=== PATIENT | male | born 1980 | race Caucasian/White ===

== ENCOUNTER 2017-01-24 09:36 | Emergency (ER) | payer OTHER ==
[2017-01-24] MEDS ORDERED: Aspirin Low Dose CHEW TAB* 81 MG PO ONE (12:39)
--- NOTE | 2017-01-24 12:46 | UC ---
ramiro Vergara Timothy, scribed for Kristin Hernandez DO on 01/24/17 at 1210 . FLU HPI - HPI Summary HPI Summary: Trell Steinberg Jr. is a 36 yo male presenting to [facility] with a cold since 01/20/17, with 5/10 ORANTES, sinus pressure, sore throat, productive cough, eye burning, and dizziness since this morning. He states he was unsteady, but did not lose consciousness or fall over. He denies any vomiting, but experienced some LUQ abd pain. His cough is occasionally productive, but does not keep him up at night. He has some right sided neck pain attributed to sleeping wrong, which has resolved. he believes he experienced a subjective fever over the past few days. He denies any other Sx. Pt pmh positive for htn, dm2(insulin dependant, very noncompliant), dislipidemia,asthma, jeremy, depression. - History of Current Complaint Chief Complaint: UCRespiratory Stated Complaint: LIGHTHEADNESS,SORE THROAT,RUNNY NOSE Time Seen by Provider: 01/24/17 12:17 Hx Obtained From: Patient Onset/Duration: Gradual Onset, Lasting Days, Still Present Severity Currently: Moderate Severity Initially: Moderate Pain Intensity: 5 Pain Scale Used: 0-10 Numeric Associated Signs & Symptoms: Positive: Fever - subjective, Cough, Sore Throat, Nasal Congestion, Headache - Allergy/Home Medications Allergies/Adverse Reactions: Allergies Allergy/AdvReac Type Severity Reaction Status Date / Time No Known Allergies Allergy Verified 05/31/16 16:00 PMH/Surg Hx/FS Hx/Imm Hx - Additional Past Medical History Additional PMH: HLD Endocrine History Of: Reports: Diabetes - oral meds Denies: Thyroid Disease Cardiovascular History Of: Reports: Hypertension Denies: Cardiac Disorders, Pacemaker/ICD Respiratory History Of: Reports: Asthma - exercise induced as a child Denies: COPD GI/ History Of: Denies: Ulcer Psychological History Of: Reports: Depression - Surgical History Surgical History: None - Family History Known Family History: Positive: Cardiac Disease, Hypertension, Diabetes, Other - HLD - Social History Lives: With Family Alcohol Use: Rare Substance Use Type: None Smoking Status (MU): Never Smoked Tobacco Have You Smoked in the Last Year: No Review of Systems Constitutional: Fever - subjective Skin: Negative Eyes: Other - eye pain ENT: Sore Throat, Nasal Discharge, Other - sinus pressure Respiratory: Cough Cardiovascular: Negative Gastrointestinal: Abdominal Pain - LUQ Genitourinary: Negative Motor: Negative Neurovascular: Negative Musculoskeletal: Other: - neck pain, resolved Neurological: Headache, Other - dizziness Psychological: Negative All Other Systems Reviewed And Are Negative: Yes Physical Exam Triage Information Reviewed: Yes Appearance: Well-Appearing, No Pain Distress, Obese Vital Signs: Initial Vital Signs Temp 97.1 F 01/24/17 09:42 Pulse 119 01/24/17 09:42 Resp 20 01/24/17 09:42 BP 144/95 01/24/17 09:42 Pulse Ox 100 01/24/17 09:42 Vital Signs Reviewed: Yes Eyes: Positive: Conjunctiva Clear. Negative: Discharge ENT: Positive: Hearing grossly normal, TMs normal. Negative: Muffled/hoarse voice Neck: Positive: Supple, Nontender Respiratory: Positive: Lungs clear, Normal breath sounds, No respiratory distress, No accessory muscle use Cardiovascular: Positive: No Murmur, Tachycardia. Negative: RRR Abdomen Description: Positive: Nontender, Soft. Negative: Distended, Guarding Bowel Sounds: Positive: Present Musculoskeletal Exam: Normal Neurological: Positive: Alert, Muscle Tone Normal, Other: - aox4, strength, sensation and reflexes intact bl, cn 2-12 intact, no cerebellar signs Psychological Exam: Normal Psychological: Positive: Age Appropriate Behavior Skin Exam: Normal Diagnostics - EKG Cardiac Rate: NL - Impression: 1218 NSR @ 97 BPM. Normal EKG. Flu Course/Dx - Course Course Of Treatment: Trell Steinberg Jr. is a 36 yo male presenting to [facility] with a cold since 01/20/17 including ORANTES, sinus pressure, and dizziness. Pt was tachycardic upon arrival. After clinical examination and review of his EKG, and discussion with Dr. Gooden, he will be transferred to [facility] for further evaluation and care. - Differential Dx/Diagnosis Differential Diagnosis/HQI/PQRI: Bronchitis, Upper Respiratory Infection, Other - sinusitis, hyperglucemia, mi Provider Diagnoses: dizziness, atypical cp r/o mi, sinusitis, hyerglycemia - Physician Notifications Discussed Patient Care With: 1236 - Dr. Gooden ([facility] physician) - Discussed Pt condition, agrees to see Pt in ED. Instructed by Provider To: MD Will See In ED Discharge - Discharge Plan Condition: Stable Disposition: TRANS HIGHER LVL OF CARE FAC Discharge Disposition Comment: Transferrred to [facility] for further evaluation and care Patient Education Materials: Diabetes Mellitus Type 2 in Adults (ED) Referrals: Sophy Cortes MD [Primary Care Provider] - The documentation as recorded by the ramiro suarez Timothy accurately reflects the service I personally performed and the decisions made by me, Kristin Hernandez DO.
[2017-01-24 12:55] VITALS: BP 143/108
== END 2017-01-24 13:08 | disposition short-term general hospital (02) ==
LOC: UCEAST 09:36
DX: R42 Dizziness and giddiness (principal); R07.89 Other chest pain; J32.9 Chronic sinusitis, unspecified; E11.65 Type 2 diabetes mellitus with hyperglycemia; Z79.84 Long term (current) use of oral hypoglycemic drugs
CPT/HCPCS: 93005; 99213; A9270-GY; G0463

== ENCOUNTER 2017-01-24 13:24 | Emergency (ER) | payer OTHER ==
[2017-01-24 13:39] VITALS: BP 144/106
[2017-01-24] MEDS ORDERED: NS 0.9% 1000 ML* 2,000 ML IV ONE (13:43)
[2017-01-24 14:03] LABS: Hematocrit 46 % (42-52); Hemoglobin 15.6 g/dl (14.0-18.0); Mean Corpuscular HGB Conc 34 g/dl (31-36); Mean Corpuscular Hemoglobin 29 pg (27-31); Mean Corpuscular Volume 86 fL (80-94); Mean Platelet Volume 10 um3 (7.4-10.4); Red Blood Count 5.37 10^6/ul (4.0-5.4); Red Cell Distribution Width 13 % (10.5-15); White Blood Count 5.6 10^3/ul (3.5-10.8)
[2017-01-24 14:28] LABS: Albumin 4.1 g/dL (3.2-5.2); BUN/Creatinine Ratio 17.3 (8-20); C Reactive Protein 35.97 mg/L (< 5.00); Calcium 9.7 mg/dL (8.6-10.3); EGFR African American 110.7 (>60); EGFR Non-African American 86.1 (>60); Globulin 3.5 g/dL (2-4); Potassium 4.2 mmol/L (3.5-5.0); Total Bilirubin 0.8 mg/dL (0.2-1.0); Total Protein 7.6 g/dL (6.4-8.9)
[2017-01-24] MEDS ORDERED: Insulin REGULAR(*) 1 UNITS UNIT IV PUSH ONE ×2 (14:29→15:57)
--- NOTE | 2017-01-24 14:29 | RAD ---
HISTORY: Headache, dizziness, cough COMPARISONS: None VIEWS: 2: Frontal dual-energy and lateral views of the chest. FINDINGS: CARDIOMEDIASTINAL SILHOUETTE: The cardiomediastinal silhouette is normal. NADEEM: The nadeem are normal. PLEURA: The costophrenic angles are sharp. No pleural abnormalities are noted. LUNG PARENCHYMA: The lungs are clear. ABDOMEN: The upper abdomen is clear. There is no subphrenic gas. BONES AND SOFT TISSUES: No bone or soft tissue abnormalities are noted. OTHER: None. IMPRESSION: NO ACTIVE CARDIOPULMONARY DISEASE.
[2017-01-24 15:33] LABS: Urine Bilirubin Negative (Negative); Urine Glucose 3+(>=500 mg/dL) (Negative); Urine Nitrite Negative (Negative)
--- NOTE | 2017-01-24 18:55 | ED ---
Brayan Vergara Erika, scribed for Evaristo Long MD on 01/24/17 at 1343 . HPI Diabetic - HPI Summary HPI Summary: Patient is a 36-year-old male presenting to the ED with a CC of hyperglycemia. Patient reports that on 01/19/2017, patient gradually developed symptoms of headache, dizziness, sore throat, and nasal discharge. Pt denies cough, constipation, and diarrhea. Today, he was seen at [facility], where they were unable to get a reading on his blood sugar because it was too high. Patient has a Hx DM, and takes Lantis. He also has a Hx HTN, hyperlipidemia. FHx diabetes, HTN. Patient does not smoke or drink. - History Of Current Complaint Time Seen by Provider: 01/24/17 13:37 Hx Obtained From: Patient, Family/Supervisor Word Processing Onset/Duration: Gradual Onset, Lasting Days, Still Present Timing: Constant Severity Initially: Mild Severity Currently: Moderate Aggravating: Recent Illness Alleviating: Nothing - Allergies/Home Medications Allergies/Adverse Reactions: Allergies Allergy/AdvReac Type Severity Reaction Status Date / Time No Known Allergies Allergy Verified 05/31/16 16:00 PMH/Surg Hx/FS Hx/Imm Hx Endocrine/Hematology History: Reports: Hx Diabetes - oral meds Denies: Hx Thyroid Disease Cardiovascular History: Reports: Hx Hypercholesterolemia, Hx Hypertension Denies: Hx Pacemaker/ICD Respiratory History: Reports: Hx Asthma - exercise induced as a child, Hx Sleep Apnea - evaluation for 06/2014 Denies: Hx Chronic Obstructive Pulmonary Disease (COPD) GI History: Denies: Hx Ulcer Sensory History: Denies: Hx Hearing Aid Psychiatric History: Reports: Hx Depression Denies: Hx Panic Disorder - Immunization History Date of Tetanus Vaccine: unknown Infectious Disease History: Denies: Hx Clostridium Difficile, Hx Hepatitis, Hx Human Immunodeficiency Virus (HIV), Hx of Known/Suspected MRSA, Hx Shingles, Hx Tuberculosis, Hx Known/ Suspected VRE, Hx Known/Suspected VRSA, History Other Infectious Disease, Traveled Outside the [place] in Last 30 Days - Family History Known Family History: Positive: Cardiac Disease, Hypertension, Diabetes, Other - HLD - Social History Alcohol Use: None Hx Substance Use: No Substance Use Type: Reports: None Hx Tobacco Use: No Smoking Status (MU): Never Smoked Tobacco Have You Smoked in the Last Year: No Review of Systems Positive: Sore Throat, Nasal Discharge Negative: Cough Negative: Diarrhea Neurological: Other - dizziness Positive: Headache All Other Systems Reviewed And Are Negative: Yes Physical Exam - Summary Physical Exam Summary: VITAL SIGNS: Reviewed. GENERAL: Patient is a well developed and nourished male who is lying comfortable in the stretcher. Patient is not in any acute respiratory distress. HEAD AND FACE: No signs of trauma. No ecchymosis, hematomas or skull depressions. No sinus tenderness. EYES: PERRLA, EOMI x 2, No injected conjunctiva, no nystagmus. EARS: Hearing grossly intact. Ear canals and tympanic membranes are within normal limits. MOUTH: Oropharynx within normal limits. NECK: Supple, trachea is midline, no adenopathy, no JVD, no carotid bruit, no c- spine tenderness, neck with full ROM. CHEST: Symmetric, no tenderness at palpation LUNGS: Clear to auscultation bilaterally. No wheezing or crackles. CVS: Regular rate and rhythm, S1 and S2 present, no murmurs or gallops appreciated. ABDOMEN: Soft, non-tender. No signs of distention. No rebound no guarding, and no masses palpated. Bowel sounds are normal. EXTREMITIES: FROM in all major joints, no edema, no cyanosis or clubbing. NEURO: Alert and oriented x 3. No acute neurological deficits. Speech is normal and follows commands. SKIN: Dry and warm Triage Information Reviewed: Yes Vital Signs On Initial Exam: Initial Vital Signs Temp 98.6 F 01/24/17 13:36 Pulse 100 01/24/17 13:36 Resp 16 01/24/17 13:36 BP 144/106 01/24/17 13:36 Pulse Ox 99 01/24/17 13:36 Vital Signs Reviewed: Yes Diagnostics - Vital Signs Vital Signs Temp Pulse Resp BP Pulse Ox 01/24/17 13:36 98.6 F 100 16 144/106 99 - Laboratory Lab Results: Lab Results 01/24/17 01/24/17 Range/Units 12:50 12:50 WBC 5.6 (3.5-10.8) 10^3/ul RBC 5.37 (4.0-5.4) 10^6/ul Hgb 15.6 (14.0-18.0) g/dl Hct 46 (42-52) % MCV 86 (80-94) fL MCH 29 (27-31) pg MCHC 34 (31-36) g/dl RDW 13 (10.5-15) % Plt Count 220 (150-450) 10^3/ul MPV 10 (7.4-10.4) um3 Neut % (Auto) 41.9 (38-83) % Lymph % (Auto) 47.8 H (25-47) % Sibley % (Auto) 9.1 H (1-9) % Eos % (Auto) 0.5 (0-6) % Baso % (Auto) 0.7 (0-2) % Absolute Neuts (auto) 2.4 (1.5-7.7) 10^3/ul Absolute Lymphs (auto) 2.7 (1.0-4.8) 10^3/ul Absolute Monos (auto) 0.5 (0-0.8) 10^3/ul Absolute Eos (auto) 0 (0-0.6) 10^3/ul Absolute Basos (auto) 0 (0-0.2) 10^3/ul Absolute Nucleated RBC 0.01 10^3/ul Nucleated RBC % 0.2 Sodium 126 L (133-145) mmol/L Potassium 4.2 (3.5-5.0) mmol/L Chloride 92 L (101-111) mmol/L Carbon Dioxide 27 (22-32) mmol/L Anion Gap 7 (2-11) mmol/L BUN 17 (6-24) mg/dL Creatinine 0.98 (0.67-1.17) mg/dL Est GFR ( Amer) 110.7 (>60) Est GFR (Non-Af Amer) 86.1 (>60) BUN/Creatinine Ratio 17.3 (8-20) Glucose 439 H (70-100) mg/dL Calcium 9.7 (8.6-10.3) mg/dL Total Bilirubin 0.80 (0.2-1.0) mg/dL AST 16 (13-39) U/L ALT 25 (7-52) U/L Alkaline Phosphatase 70 (34-104) U/L Total Creatine Kinase 142 (10-223) U/L C-Reactive Protein 35.97 H (< 5.00) mg/L Total Protein 7.6 (6.4-8.9) g/dL Albumin 4.1 (3.2-5.2) g/dL Globulin 3.5 (2-4) g/dL Albumin/Globulin Ratio 1.2 (1-3) Result Diagrams: 01/24/17 12:50 01/24/17 12:50 Lab Statement: Any lab studies that have been ordered have been reviewed, and results considered in the medical decision making process. - Radiology CXR Radiology Interpretation Completed By: Radiologist - IMPRESSION: NO ACTIVE CARDIOPULMONARY DISEASE. - EKG 13:55 Cardiac Rate: NL - at 89 bpm EKG Rhythm: Sinus Rhythm EKG Interpretation: No ST elevation Diabetic Course/Dx - Course Assessment/Plan: Patient is a 36-year-old male presenting to the ED with a CC of hyperglycemia. Patient reports that on 01/19/2017, patient gradually developed symptoms of headache, dizziness, sore throat, and nasal discharge. Pt denies cough, constipation, and diarrhea. Today, he was seen at [facility] , where they were unable to get a reading on his blood sugar because it was too high. Patient has a Hx DM, and takes Lantis. He also has a Hx HTN, hyperlipidemia. FHx diabetes, HTN. Patient does not smoke or drink. Bloodwork WNL except for sodium of 126, CRP of 35, glucose of 439. UA positive for 3+ glucose. Influenza B positive. The pt has been having the flu symptoms for more than 5 days therefore he would not benefit from treatment. CXR shows no active disease. In the ED course, the pt was hydrated with approx. 3 L fluids. He was given 18 units of insulin and his Sx have improved. At this point the pt reports he is feeling much improved and would like to be discharged. His finger stick right now is 185, Therefore, the patient will be discharged home with follow up from his PCP. The pt was instructed to hydrate well and he was advised to return for fever, chills, chest pain, SOB, or palpitations. The patient is hemodynamically stable and A&Ox3. I discussed all the findings and test results with the patient. Patient was instructed to return to the emergency room immediately if any of the symptoms return or worsens. Plan of care was discussed with the patient and understands and agrees. All questions were answered at patient satisfaction. There were no further complaints or concerns. Lung exam before discharge: CTA B/L. Good air exchange. No wheezing or crackles heard. CVS: S1 and S2 present. No murmurs appreciated. Patient is alert and oriented x 3. Patient is hemodynamically stable. 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
== END 2017-01-24 17:45 | disposition home or self-care (01) ==
LOC: ED 13:24
DX: E11.65 Type 2 diabetes mellitus with hyperglycemia (principal); J11.1 Influenza due to unidentified influenza virus with other respiratory manifestations; J02.9 Acute pharyngitis, unspecified; R51 Headache
CPT/HCPCS: 36415; 71020; 80053; 81003; 82550; 85025; 86140; 87502; 87651; 93005; 99284

== ENCOUNTER 2018-11-16 12:13 | Emergency (ER) | payer BC, OTHER ==
[2018-11-16] MEDS ORDERED: Lidocaine 1%* 5 ML VIAL INJ ONE (13:41)
[2018-11-16] MEDS ORDERED: cefTRIAXone VIAL(*) 1,000 MG VIAL IM ONE (13:41)
--- NOTE | 2018-11-16 14:43 | ED ---
Lower Extremity - HPI Summary HPI Summary: Patient is an otherwise healthy 37-year-old male presenting to the ED with left foot injury. He states on morning he stepped on either glass or particles of a dog bone. He does not believe there is a foreign body in the area. He states originally this pain was a 5/10, only with ambulation and better with rest, however over the past day has been worsening, specifically with ambulation. Pain is currently a 9/10, intermittent and throbbing. He comes to the ED today for concern over cellulitis as he noticed a red streak from the dorsum of the midfoot extending just above the ankle and worsening pain when ambulating. Patient is a diabetic and takes Lantus. He denies any other concerns on this date. - History of Current Complaint Chief Complaint: EDSoftTissueLowExtr Stated Complaint: LT FOOT PAIN Time Seen by Provider: 11/16/18 12:35 Hx Obtained From: Patient Mechanism Of Injury: Penetrating Trauma Onset of Pain: Minutes Onset/Duration: Minutes Severity Initially: Moderate Severity Currently: Moderate Pain Intensity: 7 Pain Scale Used: 0-10 Numeric Timing: Constant Location: Is Discrete @ - left plantar surface of the foot along the second digit Character Of Pain: Aching Associated Signs And Symptoms: Positive: Redness Aggravating Factor(s): Standing, Ambulation Alleviating Factor(s): Rest Able to Bear Weight: Yes - difficulty with bearing weight - Risk Factors Gout Risk Factors: Negative DVT Risk Factors: Negative Septic Arthritis Risk Factor: Negative - Allergies/Home Medications Allergies/Adverse Reactions: Allergies Allergy/AdvReac Type Severity Reaction Status Date / Time No Known Allergies Allergy Verified 11/16/18 12:19 Home Medications: Home Medications Atorvastatin* [Lipitor*] 10 mg PO 2100 11/16/18 [History Confirmed 11/16/18] Empaglifozin (NF) [Jardiance] 25 mg PO DAILY 11/16/18 [History Confirmed ] Lisinopril 10 mg PO DAILY 11/16/18 [History Confirmed 11/16/18] metFORMIN* [Glucophage 1000 MG TAB *] 1,000 mg PO DAILY 11/16/18 [History Confirmed 11/16/18] PMH/Surg Hx/FS Hx/Imm Hx Previously Healthy: Yes - diabetic Endocrine/Hematology History: Reports: Hx Diabetes - oral meds Denies: Hx Thyroid Disease Cardiovascular History: Reports: Hx Hypercholesterolemia, Hx Hypertension Denies: Hx Pacemaker/ICD Respiratory History: Reports: Hx Asthma - exercise induced as a child, Hx Sleep Apnea - evaluation for 06/2014 Denies: Hx Chronic Obstructive Pulmonary Disease (COPD) GI History: Denies: Hx Ulcer Sensory History: Denies: Hx Hearing Aid Psychiatric History: Reports: Hx Depression Denies: Hx Panic Disorder - Immunization History Date of Tetanus Vaccine: unknown Hx Pertussis Vaccination: No Immunizations Up to Date: Yes Infectious Disease History: No Infectious Disease History: Denies: Hx Clostridium Difficile, Hx Hepatitis, Hx Human Immunodeficiency Virus (HIV), Hx of Known/Suspected MRSA, Hx Shingles, Hx Tuberculosis, Hx Known/ Suspected VRE, Hx Known/Suspected VRSA, History Other Infectious Disease, Traveled Outside the [place] in Last 30 Days - Family History Known Family History: Positive: Cardiac Disease, Hypertension, Diabetes, Other - HLD - Social History Occupation: Employed Full-time Lives: With Family Alcohol Use: None Hx Substance Use: No Substance Use Type: Reports: None Hx Tobacco Use: No Smoking Status (MU): Never Smoked Tobacco Have You Smoked in the Last Year: No Review of Systems Constitutional: Negative Negative: Fever, Chills, Fatigue, Skin Diaphoresis Negative: Palpitations, Chest Pain Negative: Shortness Of Breath, Cough Genitourinary: Negative Positive: no symptoms reported, see HPI Negative: Arthralgia, Myalgia Positive: Other - erythematous streak from dorsum of the foot just proximal to the ankle measuring 13cm Negative: Headache, Weakness Psychological: Normal All Other Systems Reviewed And Are Negative: Yes Physical Exam Triage Information Reviewed: Yes Vital Signs On Initial Exam: Initial Vitals Temp Pulse Resp BP Pulse Ox 98.0 F 118 20 153/85 99 11/16/18 12:15 11/16/18 12:15 11/16/18 12:15 11/16/18 12:15 11/16/18 12:15 Vital Signs Reviewed: Yes Appearance: Positive: Well-Appearing, Well-Nourished Skin: Positive: Skin Color Reflects Adequate Perfusion Head/Face: Positive: Normal Head/Face Inspection Eyes: Positive: EOMI, SANDIP, Conjunctiva Clear Neck: Positive: Supple, No Lymphadenopathy Respiratory/Lung Sounds: Positive: Clear to Auscultation, Breath Sounds Present Cardiovascular: Positive: RRR, Pulses are Symmetrical in both Upper and Lower Extremities Musculoskeletal: Positive: Normal, Strength/ROM Intact Neurological: Positive: Speech Normal Psychiatric: Positive: Affect/Mood Appropriate AVPU Assessment: Alert Diagnostics - Vital Signs Vital Signs Temp Pulse Resp BP Pulse Ox 11/16/18 12:15 98.0 F 118 20 153/85 99 - Laboratory Lab Statement: Any lab studies that have been ordered have been reviewed, and results considered in the medical decision making process. - Radiology No standard instances Radiology Interpretation Completed By: ED Physician, Radiologist - Read by myself, Yvette Bennett PA-C and radiologist. IMPRESSION: LINEAR RADIOPAQUE FOREIGN BODY IN THE SOFT TISSUES ALONG THE PLANTAR ASPECT OF THE PROXIMAL PHALANX OF THE SECOND DIGIT. NO ACUTE OSSEOUS INJURY. IF SYMPTOMS PERSIST, RECOMMEND REPEAT IMAGING. Re-Evaluation - Re-Evaluation First Eval Change: Improved - Improved with lidocaine to the plantar surface of the foot Lower Extremity Course/Dx - Course Course Of Treatment: During the course of treatment, the patient's evaluated for left plantar foot injury which happened 3 days prior. He states the areas been getting worse with ambulation and a red streak began this morning to the dorsum of the foot extending just proximal to the ankle without extending cellulitis. X-ray obtained which shows a linear FB in the soft tissue along the plantar aspect of the proximal phalanx. Timeout obtained. Cleansed wound thoroughly using Betadine. Small 0.7 cm incision made over insertion of FB. Using ultrasound, incised to approximately 0.3 cm depth. Unable to retrieve FB and concern for further damage to surrounding structures. Advised to seek surgical consult. Patient requesting ortho, Dr. Longo. I have given him a referral for Dr. Longo for removal of FB. He is given Rocephin 1g IM in the ED and Keflex 500 QID x 7 days. He is given strict return precautions for worsening erythema, warmth or streaking to the leg, fevers, sweats, chills. He understands these return precautions and is okay for discharge at this time. - Diagnoses Differential Diagnosis/HQI/PQRI: Positive: Foreign Body, Infection, Other - lymphangitis Provider Diagnoses: Foreign body in foot Discharge - Sign-Out/Discharge Documenting (check all that apply): Patient Departure - Discharge Plan Condition: Stable Disposition: HOME Prescriptions: Cephalexin CAP* [Keflex CAP*] 500 mg PO QID #28 cap MDD 4 Patient Education Materials: Soft Tissue Foreign Body (ED) Forms: *Work Release Referrals: Sophy Cortes MD [Primary Care Provider] - Sergey Longo MD [Medical Doctor] - Additional Instructions: Please follow up with orthopedics or surgery for foreign body removal Keflex four times daily x 7 days - Billing Disposition and Condition Condition: STABLE Disposition: Home
[2018-11-16 17:50] VITALS: BP 144/100
== END 2018-11-16 17:53 | disposition home or self-care (01) ==
LOC: ED 12:13
DX: S90.852A Superficial foreign body, left foot, initial encounter (principal); W45.8XXA Other foreign body or object entering through skin, initial encounter; Y92.9 Unspecified place or not applicable; E11.9 Type 2 diabetes mellitus without complications; Z79.84 Long term (current) use of oral hypoglycemic drugs; F32.9 Major depressive disorder, single episode, unspecified
CPT/HCPCS: 96372; 99282; J0696

== ENCOUNTER 2019-06-25 18:55 | Emergency (ER) | payer BC ==
[2019-06-25] MEDS ORDERED: Ondansetron INJ* 2 MG/ML VIAL IM ONE (21:33)
[2019-06-25] MEDS ORDERED: diPHENhydraMINE IV* 50 MG/ML 1 ml VIAL (BENADRYL) IM ONE (21:33)
[2019-06-25] MEDS ORDERED: Ketorolac INJ* 30 MG/ML 1 ML VIAL IM ONE (21:33)
--- NOTE | 2019-06-25 21:52 | ED ---
Headache - HPI Summary HPI Summary: Pt is a 38 y/o M presenting to the ED with a chief complaint of a headache. He states he was at work when he had a sudden headache come on with associated visual changes. He also reports diaphoresis, chills, and N/V. He denies CP, speech problems, numbness, and weakness. He started having these headaches 1 yr ago. They have increased in frequency and severity over the past 6 months. The headache is located on the L frontal portion of his head, and he states he tried to take Tylenol but it did not work. - History Of Current Complaint Chief Complaint: EDNauseaVomitDiarrh Stated Complaint: HEADACHE, LIGHT HEADED,VOMITING PER PT Time Seen by Provider: 06/25/19 21:22 Hx Obtained From: Patient Onset/Duration: Sudden Onset, Still Present Initially Headache Was: Moderate Currently Pain Is: Moderate Timing: Hours Character: Typical Headache Location of Headache: Frontal Aggravating Factor: Nothing Allevating Factors: Nothing Associated Signs And Symptoms: Nausea, Vomiting, Visual Changes - Allergies/Home Medications Allergies/Adverse Reactions: Allergies Allergy/AdvReac Type Severity Reaction Status Date / Time No Known Allergies Allergy Verified 06/25/19 19:00 PMH/Surg Hx/FS Hx/Imm Hx Previously Healthy: Yes Endocrine/Hematology History: Reports: Hx Diabetes - oral meds Denies: Hx Thyroid Disease Cardiovascular History: Reports: Hx Hypercholesterolemia, Hx Hypertension Denies: Hx Pacemaker/ICD Respiratory History: Reports: Hx Asthma - exercise induced as a child, Hx Sleep Apnea - evaluation for 06/2014 Denies: Hx Chronic Obstructive Pulmonary Disease (COPD) GI History: Denies: Hx Ulcer Sensory History: Denies: Hx Hearing Aid Psychiatric History: Reports: Hx Depression Denies: Hx Panic Disorder - Immunization History Date of Tetanus Vaccine: unknown Infectious Disease History: No Infectious Disease History: Denies: Hx Clostridium Difficile, Hx Hepatitis, Hx Human Immunodeficiency Virus (HIV), Hx of Known/Suspected MRSA, Hx Shingles, Hx Tuberculosis, Hx Known/ Suspected VRE, Hx Known/Suspected VRSA, History Other Infectious Disease, Traveled Outside the [place] in Last 30 Days - Family History Known Family History: Positive: Cardiac Disease, Hypertension, Diabetes, Other - HLD - Social History Alcohol Use: None Hx Substance Use: No Substance Use Type: Reports: None Hx Tobacco Use: No Smoking Status (MU): Never Smoked Tobacco Have You Smoked in the Last Year: No Review of Systems Positive: Chills, Skin Diaphoresis Positive: Other - visual changes with headache Negative: Chest Pain Positive: Vomiting, Nausea Positive: Headache. Negative: Weakness, Numbness All Other Systems Reviewed And Are Negative: Yes Physical Exam - Summary Physical Exam Summary: Constitutional: Well-developed, Well-nourished, Alert. (-) Distressed Skin: Warm, Dry HENT: Normocephalic; Atraumatic Eyes: Conjunctiva normal Neck: Musculoskeletal ROM normal neck. (-) JVD, (-) Stridor, (-) Tracheal deviation Cardio: Rhythm regular, rate normal, Heart sounds normal; Intact distal pulses; The pedal pulses are 2+ and symmetric. Radial pulses are 2+ and symmetric. (-) Murmur Pulmonary/Chest wall: Effort normal. (-) Respiratory distress, (-) Wheezes, (-) Rales Abd: Soft, (-) tenderness, (-) Distension, (-) Guarding, (-) Rebound Musculoskeletal: (-) Edema Lymph: (-) Cervical adenopathy Neuro: Alert, Oriented x3, no dysmetria, cranial nerves intact, finger to nose test nml Psych: Mood and affect Normal Triage Information Reviewed: Yes Vital Signs On Initial Exam: Initial Vitals Temp Pulse Resp BP Pulse Ox 97.6 F 113 18 170/117 97 06/25/19 18:57 06/25/19 18:57 06/25/19 18:57 06/25/19 18:57 06/25/19 18:57 Vital Signs Reviewed: Yes - Eber Coma Scale Best Eye Response: 4 - Spontaneous Best Motor Response: 6 - Obeys Commands Best Verbal Response: 5 - Oriented Coma Scale Total: 15 Diagnostics - Vital Signs Vital Signs Temp Pulse Resp BP Pulse Ox 06/25/19 18:57 97.6 F 113 18 170/117 97 - Laboratory Result Diagrams: 06/25/19 22:15 06/25/19 22:15 Lab Statement: Any lab studies that have been ordered have been reviewed, and results considered in the medical decision making process. - CT Brain CT CT Interpretation Completed By: Radiologist Summary of CT Findings: No acute intracranial abnormality. ED physician has reviewed this report. Re-Evaluation - Re-Evaluation 1st re-eval Re-Evaluation Time: 23:00 Change: Unchanged Comment: Pt still has a headache. 2nd re-eval Re-Evaluation Time: 23:55 Change: Improved Comment: Pt states he is feeling better, and is stable for d/c. Headache Course/Dx - Course Course Of Treatment: Pt is a 38 y/o M presenting to the ED with a chief complaint of a headache. He states he was at work when he had a sudden headache come on with associated visual changes. He also reports diaphoresis, chills, and N/V. He denies CP, speech problems, numbness, and weakness. The headache is located on the L frontal portion of his head, and he states he tried to take Tylenol but it did not work. Pt's physical exam is nml. Brain CT shows no acute intracranial abnormality. As of 2354, the pt will be d/c'ed with dx of migraine headache. He states he feels better and is stable with d/c. - Diagnoses Provider Diagnoses: Migraine headache Discharge - Sign-Out/Discharge Documenting (check all that apply): Patient Departure Patient Received Moderate/Deep Sedation with Procedure: No - Discharge Plan Condition: Stable Disposition: HOME Patient Education Materials: Migraine Headache (ED) Print Language: MOLDOVAN Referrals: Sophy Cortes MD [Primary Care Provider] - Bar Enciso MD [Medical Doctor] - - Billing Disposition and Condition Condition: STABLE Disposition: Home - Attestation Statements Document Initiated by Ruthibe: Yes Documenting Scribe: Desirae Ortiz Provider For Whom Maxine is Documenting (Include Credential): Hannah Meade MD. Scribe Attestation: Desirae Vergara scribed for Hannah Mckeon MD. on 06/26/19 at 0514. Scribe Documentation Reviewed: Yes Provider Attestation: The documentation as recorded by the Desirae suarez accurately reflects the service I personally performed and the decisions made by , Hannah Mckeon MD. Status of Scribe Document: Viewed
[2019-06-25 22:25] LABS: ABS Basophils 0.1 10^3/ul (0-0.2); ABS Lymphocytes 1.3 10^3/ul (1.0-4.8); ABS Monocytes 0.3 10^3/ul (0-0.8); ABS Neutrophils 10.2 10^3/ul (1.5-7.7); Hematocrit 49 % (42-52); Hemoglobin 16.6 g/dL (14.0-18.0); Lymphocyte % 11.1 %; Mean Corpuscular HGB Conc 34 g/dL (31-36); Mean Corpuscular Hemoglobin 29 pg (27-31); Mean Corpuscular Volume 86 fL (80-94); Mean Platelet Volume 9.2 fL (7.4-10.4); Nucleated Red Blood Cells % 0.2; Platelet Count 264 10^3/uL (150-450); Red Blood Count 5.68 10^6 /uL (4.18-5.48); Red Cell Distribution Width 14 % (10-15)
[2019-06-25 22:41] LABS: Albumin 4.7 g/dL (3.2-5.2); Albumin/Globulin Ratio 1.3 (1-3); Calcium 9.9 mg/dL (8.6-10.3); EGFR African American 110.8 (>60); EGFR Non-African American 91.6 (>60); Globulin 3.7 g/dL (2-4); Potassium 4.6 mmol/L (3.5-5.0); Total Protein 8.4 g/dL (6.4-8.9)
[2019-06-25] MEDS ORDERED: Butalb/Acetamin/Caff TAB* 1 TAB PO ONE (23:00)
[2019-06-26 00:17] VITALS: BP 137/68
== END 2019-06-26 00:16 | disposition home or self-care (01) ==
LOC: ED 18:55
DX: G43.909 Migraine, unspecified, not intractable, without status migrainosus (principal); E11.9 Type 2 diabetes mellitus without complications; E78.00 Pure hypercholesterolemia, unspecified; I10 Essential (primary) hypertension; Z79.84 Long term (current) use of oral hypoglycemic drugs
CPT/HCPCS: 36415; 70450; 80053; 85025; 96372; 99283; A9270-GY; J1200; J1885; J2405

== ENCOUNTER 2022-10-24 09:04 | Observation (INO) ==
[2022-10-24 10:20] LABS: ABS Basophils 0.1 10^3/ul (0-0.2); ABS Eosinophils 0.1 10^3/ul (0-0.6); ABS Lymphocytes 2.2 10^3/ul (1.0-4.8); ABS Neutrophils 8.1 10^3/ul (1.5-7.7); Eosinophil % 0.4 %; Hematocrit 41 % (42-52); Hemoglobin 13.5 g/dL (14.0-18.0); Lymphocyte % 19.4 %; Mean Corpuscular HGB Conc 33 g/dL (31-36); Mean Corpuscular Hemoglobin 28 pg (27-31); Mean Corpuscular Volume 86 fL (80-94); Mean Platelet Volume 8.3 fL (7.4-10.4); Platelet Count 258 10^3/uL (150-450); Red Blood Count 4.75 10^6 /uL (4.18-5.48); Red Cell Distribution Width 13 % (10-15); White Blood Count 11.5 10^3/uL (3.5-10.8)
[2022-10-24 11:34] LABS: Albumin 3.4 g/dL (3.2-5.2); Albumin/Globulin Ratio 1.2 (1-3); C Reactive Protein 146.24 mg/L (<8.01); Calcium 8.7 mg/dL (8.6-10.3); Globulin 2.8 g/dL (2-4); Total Bilirubin 0.9 mg/dL (0.2-1.0); Total Protein 6.2 g/dL (6.4-8.9); eGFR CKD-EPI 112.9 (>60)
[2022-10-24] MEDS ORDERED: Iodixanol (CONTRAST) 320 MG/ML 100 ML SDV IV ONE (11:38)
[2022-10-24] MEDS ORDERED: Clindamycin 900 MG/D5W BAG 900 MG/50 ML BAG IVPB ONE ×2 (12:39→13:16)
[2022-10-24] MEDS ORDERED: Piperacillin/Tazobac ADVAN 3.375 GM in NS 0.9% 100 ml BAG 100 ML IV ONE (12:46)
[2022-10-24] MEDS ORDERED: Vancomycin 1,500 MG in NS 0.9% 250 ml 250 ML IVPB ONE (12:46)
[2022-10-24] MEDS ORDERED: Lactated Ringers 1000 ml BAG 1,000 ML IV ONE (13:11)
[2022-10-24] MEDS ORDERED: Ondansetron 4 mg VIAL 2 MG/ML 2 ml VIAL IV PRN (13:52)
[2022-10-24] MEDS ORDERED: HYDROmorphone 1 MG/1 ML SYRINGE IV SLOW PU PRN (13:52)
[2022-10-24] MEDS ORDERED: fentaNYL 100 mcg/2 ml 50 MCG/ML VIAL ONE (14:08)
[2022-10-24] MEDS ORDERED: Lidocaine 2% PF 5 ML VIAL ONE (14:08)
[2022-10-24] MEDS ORDERED: Propofol 10 MG/ML 20 ML BTL ONE (14:08)
[2022-10-24] MEDS ORDERED: Midazolam 2 mg/2 ml VIAL 1 mg/ml 2 ml VIAL (2 mg) ONE (14:08)
[2022-10-24] MEDS ORDERED: Lidocaine 1% VIAL 10 MG/ML VIAL 30 ML ONE (14:22)
[2022-10-24] MEDS ORDERED: Dexamethasone IV 4 MG/ML VIAL 1 ml VIAL ONE (15:05)
[2022-10-24] MEDS ORDERED: Ondansetron 4 mg VIAL 2 MG/ML 2 ml VIAL ONE (15:05)
[2022-10-24] MEDS ORDERED: Acetaminophen IV 1 GM/100ML 1,000 MG/100 ML BAG IV ONE (15:11)
[2022-10-24] MEDS ORDERED: Dextrose 50% Syringe 50 ml 25 GM/50 ML SYRINGE IV PUSH PRN (16:00)
[2022-10-24] MEDS: NS 0.9% 1,000 ML IV SCH (17:00)
[2022-10-24] MEDS ORDERED: Zosyn per Pharmacy NOTE FOLLOW UP PRN (18:19)
[2022-10-24] MEDS ORDERED: Vancomycin per Pharmacy 1 EA NOTE FOLLOW UP PRN (18:20)
[2022-10-24] MEDS: ZOSYN 3.375 GM Q8H per EXTENDED INFUSION IV SCH (18:37)
[2022-10-24] MEDS: Vancomycin 1,250 MG in NS 0.9% 250 ml 250 ML IVPB SCH (22:49)
[2022-10-25] MEDS: ZOSYN 3.375 GM Q8H per EXTENDED INFUSION IV SCH ×3 (02:09→18:32)
[2022-10-25] MEDS: NS 0.9% 1,000 ML IV SCH (03:52)
[2022-10-25] MEDS ORDERED: HYDROmorphone 0.5 MG/0.5 ML SYRINGE IV SLOW PU PRN (05:44)
[2022-10-25] MEDS: Vancomycin 1,250 MG in NS 0.9% 250 ml 250 ML IVPB SCH ×3 (06:11→23:13)
[2022-10-25 08:01] LABS: ABS Basophils 0.1 10^3/ul (0-0.2); ABS Lymphocytes 1.7 10^3/ul (1.0-4.8); ABS Monocytes 0.6 10^3/ul (0-0.8); ABS Neutrophils 7.2 10^3/ul (1.5-7.7); Eosinophil % 0.1 %; Hematocrit 37 % (42-52); Hemoglobin 12.5 g/dL (14.0-18.0); Lymphocyte % 18.2 %; Mean Corpuscular HGB Conc 34 g/dL (31-36); Mean Corpuscular Hemoglobin 29 pg (27-31); Mean Corpuscular Volume 85 fL (80-94); Mean Platelet Volume 8.7 fL (7.4-10.4); Platelet Count 258 10^3/uL (150-450); Red Blood Count 4.39 10^6 /uL (4.18-5.48); Red Cell Distribution Width 13 % (10-15); White Blood Count 9.6 10^3/uL (3.5-10.8)
[2022-10-25 08:16] LABS: Potassium 4.2 mmol/L (3.5-5.0); eGFR CKD-EPI 118.5 (>60)
[2022-10-25] MEDS ORDERED: Vancomycin Trough Check NOTE FOLLOW UP ONE (13:30)
[2022-10-25 14:22] LABS: Vancomycin Trough 9.7 mcg/mL; eGFR CKD-EPI 110.5 (>60)
[2022-10-26] MEDS ORDERED: NS 0.9% 1000 ml BAG 1,000 ML IV SCH (00:01)
[2022-10-26] MEDS: ZOSYN 3.375 GM Q8H per EXTENDED INFUSION IV SCH ×2 (02:33→11:27)
[2022-10-26 06:09] LABS: ABS Basophils 0.1 10^3/ul (0-0.2); ABS Eosinophils 0.1 10^3/ul (0-0.6); ABS Lymphocytes 2.6 10^3/ul (1.0-4.8); ABS Monocytes 0.4 10^3/ul (0-0.8); ABS Neutrophils 2.6 10^3/ul (1.5-7.7); Hematocrit 35 % (42-52); Hemoglobin 11.7 g/dL (14.0-18.0); Lymphocyte % 45.5 %; Mean Corpuscular HGB Conc 33 g/dL (31-36); Mean Corpuscular Hemoglobin 29 pg (27-31); Mean Corpuscular Volume 87 fL (80-94); Mean Platelet Volume 9.1 fL (7.4-10.4); Nucleated Red Blood Cells % 0.1; Platelet Count 255 10^3/uL (150-450); Red Blood Count 4.07 10^6 /uL (4.18-5.48); Red Cell Distribution Width 13 % (10-15); White Blood Count 5.8 10^3/uL (3.5-10.8)
[2022-10-26 06:28] LABS: Calcium 8.1 mg/dL (8.6-10.3); Potassium 4.5 mmol/L (3.5-5.0); eGFR CKD-EPI 112.1 (>60)
[2022-10-26 07:39] VITALS: BP 143/93
[2022-10-26] MEDS: Vancomycin 1,250 MG in NS 0.9% 250 ml 250 ML IVPB SCH (07:50)
[2022-10-26] MEDS ORDERED: Vancomycin Trough Check NOTE FOLLOW UP ONE (13:30)
== END 2022-10-26 11:35 | disposition home or self-care (01) ==
LOC: EDHOLD 09:04 → ED 09:04 → EDHOLD 14:40 → SSU 17:07
PROVIDERS: ADMIT Surgery; ATTEND Surgery

== ENCOUNTER 2024-06-07 12:08 | Observation (INO) ==
[2024-06-07 13:11] LABS: ABS Basophils 0.1 10^3/uL (0.0-0.1); ABS Eosinophils 0.1 10^3/uL (0.0-0.5); ABS Lymphocytes 1.5 10^3/uL (1.0-4.8); ABS Monocytes 0.9 10^3/uL (0.0-1.1); ABS Neutrophils 10.9 10^3/uL (1.5-7.6); ABS Nucleated RBC 0.01 10^3/ul; Eosinophil % 0.6 %; Hematocrit 32.2 % (38-53); Hemoglobin 11.1 g/dL (13.2-16.3); Lymphocyte % 11.2 %; Mean Corpuscular Hemoglobin 29.3 pg (27-33); Mean Corpuscular Hgb Conc 34.5 g/dL (31-36); Mean Corpuscular Volume 85.1 fL (80-97); Mean Platelet Volume 8.3 fL (7.5-11.2); Nucleated Red Blood Cells % 0.1 %/100WBC (0.0-0.8); Platelet Count 389 10^3/uL (150-450); Red Blood Count 3.78 10^6/uL (4.06-5.63); Red Cell Distribution Width 12.7 % (12-17); White Blood Count 13.4 10^3/uL (3.6-10.2)
[2024-06-07 13:49] LABS: Albumin 3.6 g/dL (3.2-5.2); Albumin/Globulin Ratio 0.9 (1-3); C Reactive Protein 219.49 mg/L (<8.01); Calcium 9.3 mg/dL (8.6-10.3); Creatinine, Serum 1.32 mg/dL (0.67-1.17); Globulin 4.2 g/dL (2-4); Potassium 4.8 mmol/L (3.5-5.0); Total Bilirubin 0.9 mg/dL (0.2-1.0); Total Protein 7.8 g/dL (6.4-8.9); eGFR CKD-EPI 68.2 (>60)
[2024-06-07] MEDS: cefTRIAXone 2 gm/50 mL D5W 2 GM/50 ML BAG IV ONE (14:03)
[2024-06-07] MEDS: Vancomycin 1,500 MG in NS 0.9% 250 ml 250 ML IVPB ONE (14:30)
[2024-06-07] MEDS: Lactated Ringers SEPSIS* BAG 2,330 ML IV ONE (15:23)
[2024-06-07] MEDS ORDERED: Dextrose 50% Syringe 50 ml 25 GM/50 ML SYRINGE IV PUSH PRN (15:34)
[2024-06-07] MEDS: NS 0.9% 1000 ml BAG 1,000 ML IV SCH (16:07)
[2024-06-07] MEDS ORDERED: Vancomycin per Pharmacy 1 EA NOTE FOLLOW UP SCH (17:00)
[2024-06-07] MEDS: Cefepime 2 GM in Dextrose 2 GM/50 ML BAG IV SCH ×2 (21:04→21:10)
[2024-06-07] MEDS: metroNIDAZOLE IV 500 MG/100ML 500 MG/100 ML BAG IVPB SCH ×2 (21:05→21:59)
[2024-06-08] MEDS: Acetaminophen IV 1 GM/100ML 1,000 MG/100 ML BAG IV PRN (00:32)
[2024-06-08] MEDS: Vancomycin 1,500 MG in NS 0.9% 250 ml 250 ML IVPB SCH (01:40)
[2024-06-08 06:56] LABS: Calcium 8.3 mg/dL (8.6-10.3); Creatinine, Serum 1.08 mg/dL (0.67-1.17); Magnesium 1.6 mg/dL (1.9-2.7); Potassium 4.3 mmol/L (3.5-5.0); eGFR CKD-EPI 86.8 (>60)
[2024-06-08 07:11] LABS: ABS Eosinophils 0.1 10^3/uL (0.0-0.5); ABS Lymphocytes 1.5 10^3/uL (1.0-4.8); ABS Monocytes 1.2 10^3/uL (0.0-1.1); ABS Nucleated RBC 0.01 10^3/ul; Hemoglobin 10.4 g/dL (13.2-16.3); Lymphocyte % 13.4 %; Mean Corpuscular Hemoglobin 29.4 pg (27-33); Mean Corpuscular Hgb Conc 34.6 g/dL (31-36); Mean Corpuscular Volume 84.8 fL (80-97); Mean Platelet Volume 8.3 fL (7.5-11.2); Nucleated Red Blood Cells % 0.1 %/100WBC (0.0-0.8); Platelet Count 309 10^3/uL (150-450); Red Blood Count 3.54 10^6/uL (4.06-5.63); Red Cell Distribution Width 12.7 % (12-17); White Blood Count 10.8 10^3/uL (3.6-10.2)
[2024-06-08] MEDS: Aspirin EC 81 mg TAB.EC (enteric coated) PO SCH (09:32)
[2024-06-08] MEDS: Insulin GLARGINE 100 un/ml 10 ml VIAL SUBCUT SCH (09:32)
[2024-06-08] MEDS: NS 0.9% 1000 ml BAG 1,000 ML IV SCH (13:12)
[2024-06-08] MEDS: Magnesium Sulfate 2 gm BAG 2 GM/50 ML BAG IVPB ONE (13:23)
[2024-06-08 19:45] VITALS: BP 162/95
[2024-06-09] MEDS ORDERED: Vancomycin Trough Check NOTE FOLLOW UP ONE (14:00)
== END 2024-06-08 19:20 | disposition short-term general hospital (02) ==
LOC: EDHOLD 12:08 → ED 12:08 → MED 16:43
PROVIDERS: ADMIT Hospitalist; ATTEND Internal Medicine Hematology & Oncology